=== PATIENT | female | born 1955 | race Caucasian/White ===

== ENCOUNTER → 2018-12-04 | Day surgery (SDC) | payer OTHER ==
[~2018-12-04] MED LIST: ATENOLOL50 MG PO; CYMBALTA30 MG; ELIQUIS; FENTANYL CITRATE/PF 100MCG/2 ML INJ ONE; LOSARTAN POTASS25 MG; PROPOFOL IV EMULSION 10 MG/ML 20 ML VIAL ONE; SOTALOL80 MG PO; VERAPAMIL ER120 MG
[2018-12-04 06:40] LABS: BASOPHILS # (AUTO) 0.1 (0.0-0.1); BASOPHILS % 0.8 % (0.0-1.0); EOSINOPHILS # (AUTO) 0.2 (0.0-0.4); EOSINOPHILS % 2.2 % (0.0-6.0); HEMATOCRIT 39.6 % (34.2-44.1); HEMOGLOBIN 13.7 g/dL (12.0-16.0); LYMPHOCYTES # (AUTO) 2.5 (1.0-3.2); LYMPHOCYTES % 32.4 % (18.0-39.1); MEAN CORPUSCULAR HEMOGLOBIN 30.4 pg (28-32); MEAN CORPUSCULAR HGB CONC 34.6 g/dL (31-35); MONOCYTES # (AUTO) 0.5 (0.2-0.8); MONOCYTES % 6.8 % (4.4-11.3); NEUTROPHILS # (AUTO) 4.4 (2.1-6.9); NEUTROPHILS % 57.3 % (38.7-80.0); PLATELET COUNT 289 x10e3/uL (140-360); RED CELL DISTRIBUTION WIDTH 13.3 % (11.7-14.4)
[2018-12-04 08:35] VITALS: BP 133/87
--- NOTE | 2018-12-04 15:25 | Operative Report ---
DATE OF PROCEDURE: SURGEON: Marco Roland MD INDICATIONS FOR PROCEDURE: Sharon is a pleasant 63-year-old female with history of dyspepsia, history of polys, and history of intermittent diarrhea. Here for further evaluation. PROCEDURES: The patient had esophagogastroduodenoscopy and a colonoscopy. PREPROCEDURE DIAGNOSES: Rule out peptic ulcer disease, gastritis, esophagitis, upper gastrointestinal neoplasm, colorectal neoplasm, diverticulosis, and inflammatory bowel disease. DESCRIPTION OF PROCEDURE: After informed and written consent, premedications with monitored anesthesia care, standard video Olympus gastroscope was introduced into the mouth, esophagus, stomach into second portion of the duodenum. The first and second portion of the duodenum appeared to be normal. Small bowel biopsies were obtained to rule out malabsorption. Antrum and body showed mild gastritis and biopsies were done. It appeared that the patient may have had a gastric sleeve. The GE junction showed a small sliding hiatal hernia with minimal reflux changes. Rest of the esophagus was normal. The colonoscope was introduced into the rectum and all the way into the terminal ileum. Minimal diverticulosis was seen in the sigmoid colon. Rest of the colon was normal. No polyps were noted. Random biopsies were obtained to look for microscopic colitis. Further recommendations will be based on the patient's clinical course given the fact that the patient has had history of adenomatous colon polyps. We will repeat the colonoscopy in 3 years and consider Colestipol depending on the patient's symptoms and biopsy report. Further recommendations will be based on the patient's clinical course. Marco Roland MD SR/MODL /[id number]
== END | disposition home or self-care (01) ==
LOC: OR 05:44
PROVIDERS: ATTEND Internal Medicine Gastroenterology
DX: Z12.11 Encounter for screening for malignant neoplasm of colon (principal); D12.6 Benign neoplasm of colon, unspecified; R19.4 Change in bowel habit; K30 Functional dyspepsia; R11.0 Nausea; K64.9 Unspecified hemorrhoids; R15.9 Full incontinence of feces; Z72.0 Tobacco use; Z68.41 Body mass index [BMI] 40.0-44.9, adult; Z71.3 Dietary counseling and surveillance; Z88.1 Allergy status to other antibiotic agents; K44.9 Diaphragmatic hernia without obstruction or gangrene; K29.70 Gastritis, unspecified, without bleeding; K57.30 Diverticulosis of large intestine without perforation or abscess without bleeding; K29.50 Unspecified chronic gastritis without bleeding
CPT/HCPCS: 36415; 43239; 45380; 85025; 93005; J2704